=== PATIENT | male | born 1985 | race Caucasian/White ===

== ENCOUNTER 2024-03-29 20:04 | Emergency (ER) | payer BC ==
[2024-03-29 20:29] VITALS: BP 128/73; O2SAT 99
--- NOTE | 2024-03-29 22:44 | ED Physician Documentation ---
PD HPI LOWER EXT INJURY - Stated complaint Stated Complaint: LT LEG PX - Chief complaint Chief Complaint: Ext Problem - History obtained from History obtained from: Patient - Additional information Additional information: The patient comes to the emergency department chief complaint of left superomedial calf pain after doing a forceful pushoff from his left foot while demonstrating a move in football. This happened this evening. The patient states that it hurts when he engages his calf, but as long as he is at rest it does not hurt. No other injuries or complaints. No prior injuries to the area PD PAST MEDICAL HISTORY - Past Medical History Past Medical History: Yes Cardiovascular: None Respiratory: Asthma Neuro: None Endocrine/Autoimmune: None GI: GERD : None HEENT: None Psych: None Musculoskeletal: None Derm: None - Past Surgical History Past Surgical History: No - Present Medications Home Medications: Ambulatory Orders Medication Instructions Recorded Confirmed Dupilumab [Dupixent Syringe] 300 mg IM MAINTENANCE.IV 03/29/24 Montelukast [Singulair] 10 mg PO DAILY 03/29/24 Pantoprazole [Protonix] 40 mg PO BID 03/29/24 - Allergies Allergies/Adverse Reactions: Allergies Allergy/AdvReac Type Severity Reaction Status Date / Time Sulfa (Sulfonamide AdvReac Unknown Verified 03/29/24 20:22 Antibiotics) - Social History Does the pt smoke?: No Smoking Status: Never smoker Does the pt drink ETOH?: No Does the pt have substance abuse?: No - Immunizations Immunizations are current?: Yes - POLST Patient has POLST: No PD ED PE NORMAL - Vitals Vital signs reviewed: Yes - General General: Alert and oriented X 3, No acute distress, Well developed/nourished - HEENT HEENT: Atraumatic, EOMI, Moist mucous membranes - Neck Neck: Supple, no meningeal sign - Cardiac Cardiac: Strong equal pulses - Respiratory Respiratory: No respiratory distress - Derm Derm: Normal color, Warm and dry, No rash - Extremities Extremities: No deformity, Normal ROM s pain, No edema, Other (Tenderness to p alpation over superomedial posterior left calf musculature. No tenderness over Achilles tendon or lower calf. No swelling. Strong plantarflexion. Good Achilles tone. Full range of motion knee and ankle.) - Neuro Neuro: Alert and oriented X 3, No motor deficit, No sensory deficit - Psych Psych: Normal mood, Normal affect Results - Vitals Vitals: Vital Signs - 24 hr 03/29/24 20:16 Temperature 37.0 C Heart Rate 51 L Respiratory 16 Rate Blood Pressure 128/73 O2 Saturation 99 Oxygen O2 Source Room air PD Medical Decision Making - ED course Complexity details: considered differential, d/w patient ED course: I discussed with the patient that his symptoms are most consistent with a calf strain. His Achilles has good tone and although it hurts to do a calf raise, the patient is able to engage using his calf muscle via the Achilles and the painful area is higher by far than the expected level of engagement of the Achilles with the musculature. We discussed that this is an injury that mostly just needs time to heal. I have discussed with the patient that he should avoid any strenuous or heavily weighted activities using the calf and should avoid any explosive movements using that musculature until he can walk without any rosie n whatsoever. He will most likely need to wait around 6 weeks, I have advised him. We have discussed symptomatic management at home. I have given him follow-up information for orthopedics should he need them. Departure - Departure Disposition: 01 Home, Self Care Clinical Impression: Strain of calf muscle Qualifiers: Encounter type: initial encounter Laterality: left Qualified Code(s): S86.812A - Strain of other muscle(s) and tendon(s) at lower leg level, left leg, initial encounter Condition: Stable Instructions: ED Strain Muscle Ext Follow-Up: James Jimenez MD [Provider Admit Priv/Credential] - Jakub Hernandez MD [Provider Admit Priv/Credential] - Comments: Based on your history and your examination, you have likely strained a portion of your cast muscle. Your Achilles tendon feels intact on exam and you are not tender or having pain over the area where the Achilles meets the musculature. As such, an Achilles injury is unlikely. Since you are having pain in your calf, we are unable to do a full calf raise exam, but you are able to plantar flex, which does demonstrate intact Achilles and general calf muscle function. In general, calf strains will ultimately heal on their own but they do take some weeks. You will most likely be feeling back to normal with walking within the next few weeks, but it is best to avoid explosive or strenuous motions using your calf muscle for at least the next 6 weeks. You may use crutches as needed but you may also bear weight as tolerated. You can follow-up with your primary doctor or with orthopedics if you wish. Forms: PCP List Discharge Date/Time: 03/29/24 22:52
== END 2024-03-29 22:52 | disposition home or self-care (01) ==
LOC: ED 20:04
DX: S86.112A Strain of other muscle(s) and tendon(s) of posterior muscle group at lower leg level, left leg, initial encounter (principal); X50.0XXA Overexertion from strenuous movement or load, initial encounter; Y93.61 Activity, american tackle football
CPT/HCPCS: 99282; 99283